=== PATIENT | female | born 1980 | race Caucasian/White ===

== ENCOUNTER → 2017-12-12 | Outpatient (CLI) | payer OTHER ==
[~2017-12-12] MED LIST: ABAC300; CEPH500 PO; CODACE30 PO; IBUP800 PO; NAPR500 PO; Percocet 5-3251 EACH PO; Vitafol-Ob+Dha1 EACH PO
== END ==
LOC: LAB 12:30 → LAB SHORT 12:30
DX: L03.90 Cellulitis, unspecified (principal); L02.91 Cutaneous abscess, unspecified
CPT/HCPCS: 87070; 87205

== ENCOUNTER 2017-12-15 15:34 | Emergency (ER) | payer OTHER ==
[~2017-12-15] VITALS: Ht 175.3 cm; Wt 113.4 kg
[~2017-12-15 15:34] MED LIST changes: -CEPH500 PO; -Percocet 5-3251 EACH PO
[2017-12-15] MEDS ORDERED: CEPH500 PO (15:40)
[2017-12-15] MEDS ORDERED: Percocet 5-3251 EACH PO (16:58)
== END 2017-12-15 17:15 | disposition home or self-care (01) ==
LOC: ER 15:34
DX: S52.501A Unspecified fracture of the lower end of right radius, initial encounter for closed fracture (principal); V00.138A Other skateboard accident, initial encounter
CPT/HCPCS: 29105; 99283

== ENCOUNTER 2017-12-23 10:13 | Day surgery (SDC) | payer OTHER ==
[~2017-12-23] VITALS: Ht 175.3 cm; Wt 113.9 kg
[~2017-12-23 10:13] MED LIST changes: +CEPH500 PO; +Percocet 5-3251 EACH PO
== END 2017-12-23 14:04 | disposition home or self-care (01) ==
LOC: ORSCSDS 10:13
PROVIDERS: Orthopaedic Surgery
PROC: 0PSH04Z Reposition Right Radius with Internal Fixation Device, Open Approach (ICD-10-PCS; principal; 2017-12-23 11:15)
DX: S52.571A Other intraarticular fracture of lower end of right radius, initial encounter for closed fracture (principal); E66.01 Morbid (severe) obesity due to excess calories; Z68.37 Body mass index [BMI] 37.0-37.9, adult
CPT/HCPCS: C1713; J0690; J3010; J7120

== ENCOUNTER 2021-02-01 12:34 | Emergency (ER) | payer OTHER ==
[~2021-02-01] VITALS: Ht 175.3 cm; Wt 117.9 kg
[2021-02-01 15:12] LABS: SARS-Cov-2 (COVID-19) PCR, MMC POSITIVE (NEGATIVE)
[2021-02-01] MEDS ORDERED: ALBU90OI INH (15:15)
[2021-02-01] MEDS ORDERED: ONDA4ODT MM (15:15)
== END 2021-02-01 15:30 | disposition home or self-care (01) ==
LOC: ER 12:34
PROVIDERS: Physician Assistant
DX: U07.1 COVID-19 (principal)
CPT/HCPCS: 71045; 99283-25; A9270; U0004

== ENCOUNTER → 2023-08-08 | Outpatient (CLI) | payer OTHER ==
[~2023-08-08] MED LIST changes: +ALBU90OI INH; +ONDA4ODT MM
== END ==
LOC: LAB SHORT 16:15 → LAB 16:15
DX: J02.9 Acute pharyngitis, unspecified (principal)
CPT/HCPCS: 87077; 87081; 87185

== ENCOUNTER → 2023-10-14 | Outpatient (CLI) | payer OTHER | END | disposition home or self-care (01) | LOC: LAB SHORT 17:06 → LAB 17:06 | DX: R07.0 Pain in throat (principal); G89.29 Other chronic pain | CPT/HCPCS: 87081 ==